=== PATIENT | female | born 1945 | race Caucasian/White ===

== ENCOUNTER → 2018-02-27 14:49 | Outpatient (CLI) | payer MEDICARE, BC, SELFPAY ==
--- NOTE | 2018-02-27 | DI.RAD.S_ITS ---
PROCEDURE: XR THORACIC SPINE 2V INDICATIONS: OSTEOPOROSIS TECHNIQUE: 3 views of the thoracic spine were acquired. COMPARISON: [facility], CR, XR LUMBAR SPINE 2-3V, 02/27/2018, 14:29. FINDINGS: Bones: No acute appearing fractures or dislocations. At what appears to be the L2 vertebral body upper endplate there is a mild compression fracture, chronicity uncertain. No suspicious bony lesions. 12 pairs of ribs are noted, and appear intact where visualized. Soft tissues: No paravertebral stripe thickening. IMPRESSION: Scoliosis, convex leftward at the upper third of the thoracic spine and convex rightward at the lower third. L2 mild superior endplate compression fracture, chronicity uncertain. MR scanning could be utilized to accurately establish chronicity of the compression fracture noted. Dictated by: Jose Mesa M.D. on 02/27/2018 at 15:44 Approved by: Jose Mesa M.D. on 02/27/2018 at 15:46
--- NOTE | 2018-02-27 | DI.RAD.S_ITS ---
PROCEDURE: XR LUMBAR SPINE 2-3V INDICATIONS: OSTEOPOROSIS TECHNIQUE: 3 views of the lumbar spine were acquired. COMPARISON: None. FINDINGS: Bones: 5 [id number] vertebrae are present. There is mildly levoscoliotic bony alignment centered at L1 to. No definite acute vertebral body compression fractures but there is a superior endplate impaction fracture at L2 of uncertain chronicity, mild in overall severity. At this level there is an estimated 22% vertebral height reduction of L2 when compared to the normal level immediately below.. No suspicious bony lesions. Soft tissues: Overlying bowel gas pattern is normal. No suspicious soft tissue calcifications. IMPRESSION: L2 22% superior endplate impaction fracture, of uncertain chronicity but MR scanning could accurately establish the presence of acute/subacute injury as the underlying cause if clinically desired. Dictated by: Jose Mesa M.D. on 02/27/2018 at 15:46 Approved by: Jose Mesa M.D. on 02/27/2018 at 15:48
== END ==
PROVIDERS: PCP Physician Assistant; Visit Provider Physician Assistant
DX: M80.08XA Age-related osteoporosis with current pathological fracture, vertebra(e), initial encounter for fracture (principal); M41.84 Other forms of scoliosis, thoracic region
CPT/HCPCS: 72070; 72100

== ENCOUNTER → 2018-03-13 08:11 | Outpatient (CLI) | payer MEDICARE, BC, SELFPAY ==
--- NOTE | 2018-03-13 | DI.MRI.S_ITS ---
PROCEDURE: MR LUMBAR SPINE WO CON INDICATIONS: LOW BACK PAIN TECHNIQUE: Noncontrast sagittal T1 spin echo and T2 fast echo, sagittal STIR, axial T1 and T2 fast spin echo through the lumbar spine. In cases with scoliosis, additional coronal T2 fast spin echo may be performed. COMPARISON: [facility], CR, XR LUMBAR SPINE 2-3V, 02/27/2018, 14:29. FINDINGS: Image quality: Diagnostic, with note made of motion artifact. Alignment and Curvature: Mild levoconvex scoliotic curvature is noted. Minimal retrolisthesis is seen in the a lower level. Bone Marrow: Marrow is of normal overall signal. There is a subacute appearing compression deformity seen involving the superior endplate of L2, with 30% loss of height centrally. No posterior displacement fracture fragments can be seen. There is a chronic compression deformity involving the anterior aspect of L1, with 10-20% loss of height anteriorly. Spinal Cord: Conus medullaris terminates at the L1 level. Visualized cord demonstrates normal signal and size. Paraspinous Soft Tissues: No paravertebral masses. T12-L1: Mild to moderate loss of disc height and disc signal are seen. No significant disc bulge. No neural foraminal or central canal narrowing. L1-L2: The disc height is well preserved. Loss of disc signal is seen. Mild disc bulge is seen, which is eccentric to the left. No neural foraminal or central canal narrowing. L2-L3: Moderate loss of disc height and disc signal are seen. Mild disc bulge is seen, which is eccentric to the left. There is no neural foraminal narrowing. Minimal to mild central canal narrowing is seen. L3-L4: Moderate loss of disc height is seen. Loss of disc signal is seen. Mild to moderate disc bulge is seen. Mild facet joint hypertrophy is seen. Mild bilateral neural foraminal narrowing is seen. Mild central canal narrowing is seen. L4-L5: At least moderate loss of disc height and disc signal are seen in moderate disc bulge is seen, which is eccentric right. There is mild to moderate left-sided and mild right-sided neural foraminal narrowing. Mild central canal narrowing is seen. L5-S1: Moderate loss of disc height is seen. Loss of disc signal is seen. Mild generalized disc bulge is seen. Mild facet joint hypertrophy is seen. No significant neural foraminal or central canal narrowing are seen. IMPRESSION: There is a subacute compression deformity seen involving the superior endplate of L2. Multiple levels of lumbar spine degenerative change are seen, which are overall most prominent at the L3-L4 and L4-L5 levels. Dictated by: Anuj River M.D. on 03/13/2018 at 9:08 Approved by: Anuj River M.D. on 03/13/2018 at 9:14
== END ==
PROVIDERS: PCP Physician Assistant; Visit Provider Physician Assistant
DX: M54.5 Low back pain (principal); M51.36 Other intervertebral disc degeneration, lumbar region
CPT/HCPCS: 72148

== ENCOUNTER → 2019-04-09 15:31 | Outpatient (CLI) | payer MEDICARE, BC, SELFPAY ==
[2019-04-09 16:12] LABS: Add Manual Diff / Slide Review NO; Basophils Absolute Auto 100 /uL (0-100); Eosinophils Absolute Auto 100 /uL (0-450); Hematocrit 38.8 % (36-46); Hemoglobin 12.6 g/dL (12.0-16.0); Lymphocytes Absolute Auto 1900 /uL (1100-4500); Lymphocytes Percent Auto 19.3 % (25-40); Mean Corpuscular HGB Conc 32.4 % (30-36); Mean Corpuscular Hemoglobin 24.7 PG (26-34); Mean Corpuscular Volume 76.3 fL (80-100); Monocytes Absolute Auto 800 /uL (0-900); Monocytes Percent Auto 8.2 % (3-14); Neutrophils Absolute Auto 7000 /uL (1500-7000); Neutrophils Percent Auto 70.5 % (50-75); Platelet Count 247 X10^3/uL (150-400); Red Blood Cell Count 5.09 X10^6/uL (4.0-5.2); Red Cell Distribution Width 16.8 % (11.6-14.8); White Blood Cell Count 9.9 X10^3/uL (4.5-11.0)
[2019-04-09 16:25] LABS: HEMOLYSIS < 15 (0-50); Iron 37 ug/dL (37-170)
[2019-04-09 16:36] LABS: Percent Iron Saturation 8 % (15-50); Total Iron Binding Capacity 453 ug/dL (265-497); Transferrin 351 mg/dL (206-381)
[2019-04-09 17:00] LABS: Ferritin 6.4 ng/mL (11.1-264)
[2019-04-09 17:30] LABS: Folate 6.2 ng/mL (2.76-20.0); Vitamin B12 907 pg/mL (239-931)
== END ==
PROVIDERS: PCP Physician Assistant; Visit Provider Internal Medicine Hematology & Oncology
DX: D50.9 Iron deficiency anemia, unspecified (principal)
CPT/HCPCS: 36415; 82607; 82728; 82746; 83540; 83550; 85025

== ENCOUNTER → 2019-04-15 13:27 | Outpatient (CLI) | payer MEDICARE, BC, SELFPAY | PROVIDERS: Family Provider Orthopaedic Surgery Orthopaedic Surgery of the Spine; PCP Internal Medicine; Visit Provider Internal Medicine | DX: M81.0 Age-related osteoporosis without current pathological fracture (principal); Z78.0 Asymptomatic menopausal state; M19.071 Primary osteoarthritis, right ankle and foot; M19.072 Primary osteoarthritis, left ankle and foot | CPT/HCPCS: 77080 ==

== ENCOUNTER → 2020-05-04 16:39 | Outpatient (CLI) | payer MEDICARE, BC, SELFPAY ==
[2020-05-04 18:28] LABS: Free T3, Triiodothyronine Free 2.49 pg/mL (2.77-5.27)
[2020-05-04 18:41] LABS: TSH w/ Reflex to FT4 5.25 uIU/mL (0.47-4.68)
== END ==
PROVIDERS: Family Provider Orthopaedic Surgery Orthopaedic Surgery of the Spine; PCP Internal Medicine; Referring Provider Internal Medicine; Visit Provider Internal Medicine
DX: E03.9 Hypothyroidism, unspecified (principal)
CPT/HCPCS: 84439; 84443; 84481

== ENCOUNTER → 2020-07-22 14:28 | Outpatient (CLI) | payer MEDICARE, BC, SELFPAY ==
[2020-07-22 15:40] LABS: Free T4, Direct Thyroxine 1.56 ng/dL (0.78-2.19)
[2020-07-22 15:54] LABS: Thyroid Stimulating Hormone 1.23 uIU/mL (0.47-4.68)
[2020-07-23 08:08] LABS: Triiodothyronine T3 Total 100 ng/dL (71-180)
== END ==
PROVIDERS: Family Provider Orthopaedic Surgery Orthopaedic Surgery of the Spine; PCP Internal Medicine; Referring Provider Internal Medicine; Visit Provider Internal Medicine
DX: E03.9 Hypothyroidism, unspecified (principal); E61.1 Iron deficiency
CPT/HCPCS: 36415; 84439; 84443; 84480

== ENCOUNTER → 2020-08-03 12:10 | Outpatient (CLI) | payer MEDICARE, BC, SELFPAY ==
[2020-08-03 13:09] LABS: Add Manual Diff / Slide Review NO; Basophils Absolute Auto 0 /uL (0-100); Basophils Percent Auto 0.6 % (0-2); Eosinophils Absolute Auto 100 /uL (0-450); Eosinophils Percent Auto 1.4 % (2-4); Hematocrit 42.7 % (36-46); Hemoglobin 13.5 g/dL (12.0-16.0); Lymphocytes Absolute Auto 1200 /uL (1100-4500); Lymphocytes Percent Auto 16.9 % (25-40); Mean Corpuscular HGB Conc 31.7 % (30-36); Mean Corpuscular Hemoglobin 27.4 PG (26-34); Mean Corpuscular Volume 86.5 fL (80-100); Monocytes Absolute Auto 500 /uL (0-900); Neutrophils Absolute Auto 5000 /uL (1500-7000); Neutrophils Percent Auto 73.1 % (50-75); Platelet Count 228 X10^3/uL (150-400); Red Blood Cell Count 4.94 X10^6/uL (4.0-5.2); White Blood Cell Count 6.9 X10^3/uL (4.5-11.0)
[2020-08-03 13:19] LABS: Alanine Aminotransferase 53 IU/L (<35); Albumin 4.1 g/dL (3.5-5.0); Albumin Globulin Ratio 1.6 (1.0-2.8); Alkaline Phosphatase 90 U/L (38-126); Aspartate Aminotransferase 35 IU/L (14-36); Bilirubin Total 0.8 mg/dL (0.2-1.3); Blood Urea Nitrogen 20 mg/dL (7-17); Calcium 8.7 mg/dL (8.4-10.2); Carbon Dioxide 32 mmol/L (22-32); Chloride 103 mmol/L (98-107); Estimated Glomerular Filt Rate > 60.0 mL/min (>60); Globulin 2.5 g/dL (1.7-4.1); Glucose 108 mg/dL (80-110); HEMOLYSIS < 15 (0-50); Potassium 3.8 mmol/L (3.4-5.1); Sodium 138 mmol/L (137-145); Total Protein 6.6 g/dL (6.3-8.2)
[2020-08-03 13:26] LABS: HEMOLYSIS < 15 (0-50); Iron 83 ug/dL (37-170)
[2020-08-03 13:39] LABS: Percent Iron Saturation 25 % (15-50); Total Iron Binding Capacity 329 ug/dL (265-497); Transferrin 222 mg/dL (206-381)
[2020-08-03 13:59] LABS: Ferritin 60 ng/mL (11-264)
== END ==
PROVIDERS: Family Provider Orthopaedic Surgery Orthopaedic Surgery of the Spine; PCP Internal Medicine; Referring Provider Internal Medicine; Visit Provider Internal Medicine
DX: D50.9 Iron deficiency anemia, unspecified (principal)
CPT/HCPCS: 36415; 80053; 82728; 83540; 83550; 85025

== ENCOUNTER → 2020-09-23 12:29 | Outpatient (CLI) | payer MEDICARE, BC, SELFPAY ==
--- NOTE | 2020-09-24 10:24 | DIET.PN ---
Addendum entered by Evelina Martin 09/24/20 10:45: Progress note written one day after pt appt, pt MNT appt was on 09/23/20 Original Note: Dietary Progress Note Assessment: 75y F attending nutrition appointment for severe complications and malabsorption after gastric bypass surgery. 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 Has osteoporosis from poor calcium absorption- two ankles, foot, and L2 fractures so far. Having difficulty recovering from L2 fracture which happened when she fell backwards while pulling a weed out of her garden. Pt has no absorption of fat soluble vitamins ADEK, does not tolerate fat in her diet either. Pt takes zinc supp and biotin but unsure what is actually absorbed. Pt is high risk for kidney stones (calcium oxalate) from poorly absorbed calcium, high oxalate foods, and low fluid intake but hasn't had one for 5y, has had 4 times previously, once requiring laser tx. Usual Day: wakes 7-7:30am 2c coffee c milk 8am takes thyroid meds 8:30am toast or bagel c spread (avocado, pb, light margarine) 2pm snack: doesn't like yogurt but eats a little every day, drinks yacoult drinks 1/2 [place] drink for Vit K likes cheetoes or other snackie things on napkin c in afternoon tries to eat dinner before 7pm Dinner: meat at every meal (doesn't like fish, doesn't like chicken) usually beef or pork (some chicken or shrimp), loves tacos, winter beans, broth based soups, grilled hamburgers on buns, hot dogs, pot roast has dessert every day (cake, pie, candy bars) HT: 5'8 WT: 195# UBW: 175# Labs: all from 07/30: K+ 3.8, FBG 108, Ca 8.7, Mg 2.4 H, Iron 83, Ferritin 60, Vit D 32.7, B12 988 H, Folate 4.3 Nutrition Diagnosis: 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 RD Impression: Pt has good insight into her health status, however is not following adequate diet to maintain weight loss s/p bariatric surgery. Pt is reliant on refined grain foods (bread, crackers, chips, dessert, sugar-sweetened beverages) and feels unable to do regular, structured physical activity for fear of further osteoporotic fractures. Interventions: 1. To address multiple nutrient malabsorption, pt is going to try [employer] transdermal nutrition supplements which are designed for s/p bariatric duodenal switch patients. This procedure is closely related to hers and they offer MVI, calcium c Vit D, iron. Pt will purchase 3mo supply and will request repeat nutrition labs to assess whether they are working. 2. To address 20# weight gain over the past year, pt will work on adding protein to every meal and snack. Pt will add 2 hb eggs to breakfast, will reconsider her yogurt choice to include lower sugar, will eat a small lunch, and will practice portion control at dinner. Monitoring/Evaluations: recc repeat nutrition labs in 3 mo and f/u as needed
== END ==
PROVIDERS: Family Provider Orthopaedic Surgery Orthopaedic Surgery of the Spine; PCP Internal Medicine; Referring Provider Internal Medicine; Visit Provider Internal Medicine
DX: K91.2 Postsurgical malabsorption, not elsewhere classified (principal); Z98.84 Bariatric surgery status
CPT/HCPCS: 97802

== ENCOUNTER → 2020-10-12 10:15 | Outpatient (CLI) | payer MEDICARE, BC, SELFPAY ==
[2020-10-12 11:35] LABS: COVID19 -Nasal RAPID Negative (Negative)
== END ==
PROVIDERS: Family Provider Orthopaedic Surgery Orthopaedic Surgery of the Spine; PCP Internal Medicine; Visit Provider Surgery
DX: Z20.822 Contact with and (suspected) exposure to COVID-19 (principal)
CPT/HCPCS: 87635; C9803

== ENCOUNTER 2020-10-13 11:52 | Day surgery (SDC) | payer MEDICARE, BC, SELFPAY ==
[2020-10-13] VITALS (7 sets, daily range): BP systolic 101–125; BP diastolic 62–74; PULSE 64–70; RESP 12–18; TEMP 36.4–37.1; O2SAT 93–97; BMI 30.5
--- NOTE | 2020-10-13 | PATH_ITS ---
[facility] Accession Number: [id number] . 01 Material submitted: . PART A: gastrointestinal site - BIOPSY GASTRIC ANASTOMOSIS PART B: gastrointestinal site - STOMACH PART C: esophagus - ESOPHAGUS PART D: rectum - 20CM RECTAL POLYPS X3 . 01 Clinical history: . SDC . 02 Diagnosis: A. Biopsy Gastric Anastomosis: Portions of gastric antral mucosa with mild chronic inflammation and features of reacive gastropathy. Negative for Helicobacter organisms by immunohistochemistry. Negative for intestinal metaplasia. Negative for dysplasia and malignancy. . B. Stomach, Biopsy: Portions of gastric body-type mucosa with mild chronic inflammation. Negative for Helicobacter organisms by immunohistochemistry. Negative for intestinal metaplasia. Negative for dysplasia and malignancy. . C. Esophagus, Biopsy: Portions of proximal gastric mucosa with mild chronic inflammation. Negative for intestinal metaplasia by alcian blue stain. Negative for dysplasia or malignancy. No squamous mucosa identified for evaluation. . D. 20 cm Rectal Polyps x3: Portions of hyperplastic polyp x3. [facility] 10/19/2020 1504 Local . 02 Electronically signed: . Mariel Diaz MD, Pathologist NPI- [id number] . 01 Gross description: . Part A: BIOPSY GASTRIC ANASTOMOSIS: Received in formalin is 1 fragment(s) of ramsay, soft tissue measuring 0.5 x 0.3 x 0.2 cm submitted entirely in 1 cassette(s) Part B: STOMACH: Received in formalin are 2 fragment(s) of ramsay, soft tissue measuring 0.5 x 0.3 x 0.1 cm to 0.3 x 0.3 x 0.2 cm submitted entirely in 1 cassette(s) Part C: ESOPHAGUS: Received in formalin are 2 fragment(s) of ramsay, soft tissue measuring 0.7 x 0.3 x 0.1 cm to 0.5 x 0.3 x 0.1 cm submitted entirely in 1 cassette(s) Part D: 20CM RECTAL POLYPS X3: Received in formalin are 3 fragment(s) of ramsay, soft tissue measuring 0.4 x 0.4 x 0.3 cm to 0.3 x 0.3 x 0.2 cm submitted entirely in 1 cassette(s) /QBJ 10/14/2020 0644 Local . 02 Microscopic: . A-B. An immunohistochemical stain was performed to evaluate for Helicobacter organisms and is negative. The control stain showed appropriate reactivity. . * This test was developed and its performance characteristics determined by [employer]. It has not been cleared or approved by the U.S. Food and Drug Administration. The FDA has determined that such clearance or approval is not necessary. This test is used for clinical purposes. It should not be regarded as investigational or for research. . 02 Pathologist provided ICD-10: D64.9, K63.5, K29.70 . 02 CPT . 469367, 324572, 233146, 587983, [id number], [id number] Performed at: 01 [facility] [address] [place] [address], [place], [place] [id number] MD Hang Carpenter MD Phone: [phone] Performed at: 02 [facility] [address] [place], [place] [id number] MD Caro Crespo MD Phone: [phone]
[2020-10-13] MEDS: SODIUM CHLORIDE 0.9% 1,000 ML 200 ML IV (12:27)
--- NOTE | 2020-10-13 13:02 | PM.HP.1 ---
History of Present Illness History of Present Illness Date Patient Seen: 10/13/20 Time Patient Seen: 13:03 Chief complaint: SDC Narrative: This is a 74-year-old woman with history of biliary pancreatic bypass surgery (duodenal switch) in 1991. She has had anemia and osteoporosis since then, secondary to malabsorption of iron and calcium from the operation. She has had breast reduction, UGO/BSO, 2 C sections, and abdominoplasty. She has hypothyroidism, history of kidney stones, history of fatty liver, hypertension, obesity (BMI 34) and ANTHONY. She is being followed by Dr. Cole for her anemia, and is receiving iron infusions. Through her discussions with him, it was discovered that she has never had a screening colonoscopy, has never had an upper endoscopy. She is referred for both, for colon cancer screening, and to rule out other causes of anemia. She denies any symptoms of epigastric pain, melena, nausea, reflux, or heartburn. She has never had evaluation or surveillance for marginal ulcer. ROS: She reports easy bruising any time she takes an NSAID. She was having some nausea and vertigo symptoms today. She has received some IV fluids and is feeling better. Thirteen system review is otherwise negative other than as mentioned below and in HPI. PE: GENERAL: Well groomed and cooperative. Appears stated age. Answers questions promptly and appropriately. Vital signs noted. HENT: Normocephalic, atraumatic. Hearing intact. EYES: Conjunctiva pink, sclera white, no periorbital swelling. CARDIOVASCULAR: Regular rate. No pedal edema. RESPIRATORY: Non-tachypneic, breathing comfortably on room air. GASTROINTESTINAL: Abdomen soft and non-distended; obese, well-healed incisional scars, no palpable hernias or masses GENITALURINARY: No flank tenderness. MUSCULOSKELETAL: Equal tone and mass bilaterally. SKIN: Warm, dry, soft, appropriate color for ethnicity. No other lesions, rashes, or wounds. NEURO: Alert and Oriented X 3. No gross sensory deficits, or cognitive issues. PSYCH: Appropriate affect and mood. Patient History Medical History Anemia Chronic anxiety Hypertension Hypothyroid obesity Hypothyroidism Meniere disease Obstructive sleep apnea Osteoporosis Surgical History History of hysterectomy History of reduction mammoplasty History of tonsillectomy Hx of section Family & Social History Family History Father CML (chronic myelocytic leukemia) Heart disease Mother Renal pelvis transitional cell malignant neoplasm Stroke Sister Ovarian cancer Social History: household members spouse Tobacco & Substance use: Smoking Status Never smoker alcohol intake never Substance Use Type does not use Meds Home Medications and Allergies Home Medications Medication Instructions Recorded Confirmed Type fluoxetine 20 mg PO BID #0 11/21/16 10/13/20 History hydrochlorothiazide 12.5 mg PO Q DAY #0 11/21/16 10/13/20 History levothyroxine [Synthroid] 1 tab PO DAILY #0 11/21/16 10/13/20 History raloxifene [Evista] 60 mg PO QDAY #0 11/21/16 10/13/20 History sodium,potassium,mag sulfates 17.5 177 ml PO DAILY #354 ml 08/25/20 Rx gram-3.13 gram-1.6 gram oral soln Allergies Allergy/AdvReac Type Severity Reaction Status Date / Time erythromycin base Allergy Intermediate HIVES Verified 10/13/20 12:08 [ERYTHROMYCIN BASE] codeine [CODEINE] AdvReac Intermediate NAUSEA Verified 10/13/20 12:08 Exam Vital Signs (past 8 hours): - 10/13/20 12:10 Temperature 98.0 F Pulse Rate 70 Respiratory Rate 12 Blood Pressure 125/74 Pulse Oximetry 95 Oxygen Delivery Method Room Air Assessment & Plan Assessment and plan (1) Obesity (BMI 30.0-34.9): Status: Acute (2) Obstructive sleep apnea: Status: Acute (3) History of bariatric surgery: Status: Acute (4) Iron deficiency anemia: Qualifiers: Iron deficiency anemia type: other iron deficiency Qualified Code(s): D50.8 - Other iron deficiency anemias Status: Acute Assessment & Plan narrative: 38 minutes were spent with the patient, reviewing her records, and discussing the plan for her endoscopy. Risks and benefits of diagnostic EGD, and colonoscopy and possible biopsy or polypectomy were discussed with the patient including risk of bleeding, perforation, need for additional procedures, risks of anesthesia. The patient desires to proceed with the EGD and colonoscopy procedure. We discussed the need for upper and lower endoscopy to rule out other causes of anemia, and to surveil her stomach pouch and anastomosis for ulcers, gastritis, esophagitis. We discussed need for colonoscopy due to standard risk of colon cancer and need for screening colonoscopy. Plan: Zofran 4mg IV now Proceed to EGD and colonoscopy with conscious sedation COVID-19 COVID-19 status: Negative Result date/Date tested (Pos, Neg/Pending): 10/12/20 Time Spent With Patient Time with patient: 15-24 minutes
[2020-10-13] MEDS: ONDANSETRON 4 MG/2 ML INJ IV (13:03)
--- NOTE | 2020-10-13 13:11 | PM.OP.ENDO ---
Operative Date/Time/Diagnoses Date of procedure: 10/13/20 Time of procedure: 13:11 Pre-op diagnosis: Anemia, history of bariatric surgery, never had a surveillance EGD. Age 75 never had a colonoscopy. Post-op diagnosis: other (4 cm Hill grade 4 hiatal hernia, Monk's esophagus, inflammation/discussed gastritis at the gastrojejunal anastomosis, widely patent anastomosis) Procedure & Clinicians Study performed: Colonoscopy Esophagogastroduodenoscopy Procedural sedation performed by the endoscopist Biopsies of gastro jejunal anastomosis, biopsies of stomach, biopsies of distal esophagus with standard forceps Polypectomy x2 from the colon with Jumbo forceps Same procedure as scheduled: Yes Indications: Anemic, history of bariatric surgery Never had an EGD or colonoscopy Surgeon: Becky Cummings Procedure Notes SCOAP/Timeout: Performed Procedure in detail: The patient was brought to the room and placed in left lateral decubitus position with all bony prominences padded. A bite block was positioned in the patient's mouth to protect the lips, teeth, and tongue for the procedure. A time-out was performed and then the patient was given procedural sedation starting with 3 mg of Versed and 100 mcg of fentanyl. Vitals were monitored throughout the procedure and remained stable. Once adequately sedated, the procedure was begun. The lubricated gastroscope was passed through the bite block and across the tongue and into the esophagus without incident. A tubular view of the esophagus was maintained as the scope was advanced through the esophagus and into the stomach. The gastrojejunal anastomosis was observed, to be widely patent. There was some visible inflammatory change on the stomach side of the gastrojejunal anastomosis. This was biopsied. The scope was advanced into the jejunum, and the jejunal mucosa appeared normal, and there were no strictures or narrowing of the jejunum as far as I could pass the scope, about 30 cm down. The scope was then withdrawn back into the stomach. Biopsies were taken to rule out H pylori. The scope was retroflexed and the gastric cardia was examined. There was a diverticulum on the fundus of the stomach, which appeared benign without any ulcerations. The hiatus was wide, consistent with a Hill grade 4 hiatal hernia. The scope was then straightened, and withdrawn into the esophagus. The Z-line was abnormal with 3-4 cm tongues of salmon-colored mucosa coming up into the esophagus, consistent with Monk's esophagus. Biopsies were taken. The scope was then withdrawn through the esophagus with a tubular view. The scope was then withdrawn from the patient and attention was turned to the colonoscopy portion of the procedure. In additional 2 mg of Versed were given. A rectal exam was performed revealing no abnormalities. The colonoscope was then introduced to the rectum and advanced to the cecum in the usual fashion. The cecum was identified by the appendiceal orifice, the mucosal tri-fold, and the ileocecal valve. The scope was then retracted while rotating side to side and examining each mucosal fold. Moderate diverticulosis was seen in the left side of the colon. Three polyps were removed at 20 cm from the anal verge in the rectum. They were small and benign-appearing. At the conclusion of the procedure retroflexion was performed and small grade 1-2 internal hemorrhoids without stigmata of bleeding were seen. The scope was then withdrawn from the rectum the procedure was concluded. The patient tolerated the procedure well and was transferred to the PACU in stable condition. A total of 7 mg of Versed and 150 micro g of fentanyl were given for the entire procedure. Scope withdrawal time: 9 Sedation minutes: 35 Findings: Monk's esophagus, diverticulosis, gastritis, hiatal hernia and polyp (Three colon polyps) Specimen(s): other (Biopsies of gastrojejunal anastomosis, stomach, distal esophagus. Polypectomy x2.) Post-procedure Recommendations: Colonscopy in 5 years (Depending on pathology results) and Other recommendation (Start PPI or H2 yesica, EGD follow-up surveillance recommendations depending on biopsy results) Follow up: as needed Disposition: PACU
[2020-10-13] MEDS: LIDOCAINE 4% SOLN 50 ML 20 ML TOP (13:12)
[2020-10-13] MEDS: MIDAZOLAM 5 MG/5 ML VIAL IV (13:34)
[2020-10-13] MEDS: fentaNYL 250 MCG/5 ML INJ IV (13:34)
--- NOTE | 2020-10-13 14:43 | SUR.PHASEII ---
Pt ready to go, swallow remains intact, belly soft. called, pt dressed, left unit when ready left in stable condition.
--- NOTE | 2020-10-13 15:33 | SUR.PHASEII ---
Late entry: Pt getting dressed, had some nausea, vomited 50mls yellow clear liquid, cool wash cloth to forehead, yohane ease brought to bedside, pt felt better after 10 minutes and wanted to go, left in stable condition.
== END 2020-10-13 14:51 | disposition home or self-care (01) ==
PROVIDERS: Family Provider Orthopaedic Surgery Orthopaedic Surgery of the Spine; PCP Internal Medicine; Referring Provider Surgery; Visit Provider Surgery
PROC: 0DJ08ZZ Inspection of Upper Intestinal Tract, Via Natural or Artificial Opening Endoscopic (ICD-10-PCS; CPT 43235; principal; 2020-10-13 13:00)
PROC: 0DJD8ZZ Inspection of Lower Intestinal Tract, Via Natural or Artificial Opening Endoscopic (ICD-10-PCS; CPT 45378; 2020-10-13 13:00)
DX: K29.50 Unspecified chronic gastritis without bleeding (principal); D50.8 Other iron deficiency anemias; G47.33 Obstructive sleep apnea (adult) (pediatric); Z98.84 Bariatric surgery status; E03.9 Hypothyroidism, unspecified; E66.9 Obesity, unspecified; Z68.34 Body mass index [BMI] 34.0-34.9, adult; M81.0 Age-related osteoporosis without current pathological fracture; K22.70 Barrett's esophagus without dysplasia; K44.9 Diaphragmatic hernia without obstruction or gangrene; K64.0 First degree hemorrhoids; K62.1 Rectal polyp
CPT/HCPCS: 45380; 43239; 99152; 99153; J2250; J2405; J3010

== ENCOUNTER 2021-01-02 20:41 | Emergency (ER) | payer MEDICARE, BC, SELFPAY ==
[2021-01-02 21:01] VITALS: BP 154/82; PULSE 80; RESP 18; TEMP 37.3; O2SAT 96; BMI 32.3
== END 2021-01-02 22:13 | disposition left against medical advice (07) ==
PROVIDERS: Emergency Provider Emergency Medicine; Family Provider Orthopaedic Surgery Orthopaedic Surgery of the Spine; PCP Internal Medicine
CPT/HCPCS: 99281

== ENCOUNTER → 2021-04-22 12:08 | Outpatient (CLI) | payer MEDICARE, BC, SELFPAY ==
--- NOTE | 2021-04-22 12:09 | DI.RAD.S_ITS ---
PROCEDURE: XR DEXA AXIAL SKELETON INDICATIONS: OSTEOPOROSIS SCREENING COMPARISON: [facility], CR, XR DEXA AXIAL SKELETON, 04/15/2019, 14:18. FINDINGS: This blank DEXA report has been sent in error by the PACS system. The correct and complete report will be forthcoming in 1-2 days. Thank you for your patience and understanding. Dictated by: Gustavo Sellers M.D. on 04/22/2021 at 14:13 Approved by: Gustavo Sellers M.D. on 04/22/2021 at 14:13
== END ==
PROVIDERS: Family Provider Orthopaedic Surgery Orthopaedic Surgery of the Spine; PCP Internal Medicine; Referring Provider Internal Medicine; Visit Provider Internal Medicine
DX: M81.0 Age-related osteoporosis without current pathological fracture (principal); M85.852 Other specified disorders of bone density and structure, left thigh; M85.851 Other specified disorders of bone density and structure, right thigh
CPT/HCPCS: 77080

== ENCOUNTER 2021-06-26 16:02 | Emergency (ER) | payer MEDICARE, BC, SELFPAY ==
--- NOTE | 2021-06-26 16:10 | ED_ITS ---
HPI - Back Pain/Injury General Chief Complaint: Back Pain/Injury Stated Complaint: BACK PAIN POST FALL Time Seen by Provider: 06/26/21 16:10 History of Present Illness HPI Narrative: 75-year-old female nonsmoker with history of hypothyroid and hypertension as well as a prior lumbar compression fracture presents with her in the chief complaint of low midline back pain since a fall this morning. She states that she was at her son's house and tripped on a dog gate and fell on to her bottom. She states she immediately felt a midline lumbar pain that reminded her of prior compression fracture. She has pain with motion and improvement with rest. She denies any numbness, tingling or weakness. She denies any loss of control of bowel or bladder. She has had no fever chills and does not take blood thinners. Related Data Home Medications Medication Instructions Recorded Confirmed fluoxetine 40 mg capsule 20 mg PO BID #0 11/21/16 03/23/21 hydrochlorothiazide 12.5 mg capsule 12.5 mg PO Q DAY #0 11/21/16 03/23/21 levothyroxine 150 mcg tablet 1 tab PO DAILY #0 11/21/16 03/23/21 (Synthroid) raloxifene 60 mg tablet (Evista) 60 mg PO QDAY #0 11/21/16 03/23/21 cholecalciferol (vitamin D3) 125 50,000 mcg PO 3XW 12/15/20 03/23/21 mcg (5,000 unit) tablet (Vitamin D3) multivitamin cap 12/15/20 Previous Rx's Medication Instructions Recorded lidocaine 5 % topical patch 1 patch TOP DAILY #15 each 06/26/21 (Lidoderm) Allergies Allergy/AdvReac Type Severity Reaction Status Date / Time erythromycin base Allergy Intermediate HIVES Verified 06/26/21 16:54 [ERYTHROMYCIN BASE] codeine [CODEINE] AdvReac Intermediate NAUSEA Verified 06/26/21 16:54 Review of Systems Review of Systems Narrative: GENERAL: Denies chills, fatigue, malaise, fever, sweats. HEENT: Denies sinus pain, ear pain, sore throat, difficulty swallowing, dizziness. RESPIRATORY: Denies dyspnea, cough, wheezing, hemoptysis, sputum. CARDIOVASCULAR: Denies chest pain, palpitations, orthopnea, edema, GASTROINTESTINAL: Denies nausea, vomiting, abdominal pain, diarrhea, constipation, melena. : Denies dysuria, frequency, incontinence, hematuria, urinary retention. MUSCULOSKELETAL: See HPI SKIN: Denies rash, skin lesions, or other NEUROLOGIC: Denies weakness, headache, numbness, change in speech, confusion, seizures, incoordination. PSYCHIATRIC: No concerning psychosocial issues. 12 point review of systems is negative except for those stated above Patient History Medical History Anemia Chronic anxiety Hypertension Hypothyroid obesity Hypothyroidism Meniere disease Obstructive sleep apnea Osteoporosis Surgical History History of hysterectomy History of reduction mammoplasty History of tonsillectomy Hx of section Family History Father CML (chronic myelocytic leukemia) Heart disease Mother Renal pelvis transitional cell malignant neoplasm Stroke Sister Ovarian cancer Social History marital status: household members: spouse Smoking Status: Never smoker alcohol intake: never substance use type: does not use Smoking Status: Never smoker Substance Use Type: does not use Exam Narrative Exam Narrative: GEN: AOx3 and in mild distress EYES: Pupils are equal, round, and reactive to light and accommodation. Extraoccular muscles are intact bilaterally. There is no subconjunctival hemorrhage or exudate. CHEST: Lungs are clear to auscultation bilaterally and free of wheezes, rales, or rhonchi. Heart rate is regular rhythm, there are no murmurs, clicks, rubs, or gallops. There is no chest wall tenderness. ABD: Abdomen is soft and nontender. There is no guarding or rebound. Bowel sounds are normal in all 4 quadrants. There is no mass or organomegaly. EXT: Full painless ROM of all extremities with no loss of sensation or strength. BACK: Mid lumbar tenderness to palpation in the midline. No step-offs or crepitance. No saddle anesthesia or measurable lower extremity weakness. Patellar reflexes 1+ bilaterally. No sensory deficit. SKIN: Warm, pink, and dry. No erythema or rash Initial Vital Signs Initial Vital Signs: Vital Signs Temperature 97.5 F L 06/26/21 16:13 Pulse Rate 74 06/26/21 16:13 Respiratory Rate 16 06/26/21 16:13 Blood Pressure 144/75 H 06/26/21 16:13 Pulse Oximetry 96 06/26/21 16:13 Course Orders Ordered: ED Orders 06/26/21 16:19 XR lumbar spine 2-3V Stat 06/26/21 16:20 Ictotest Urine Stat Urine Microscopic Stat Discontinued Medications Acetaminophen (Acetaminophen 325 Mg Tablet) 975 mg PO NOW ONE Stop: 06/26/21 16:20 Last Admin: 06/26/21 16:39 Dose: 975 mg Documented by: OK Lidocaine (Lidocaine Patch 1 Each Adh..Patch) 1 each TOP NOW ONE Stop: 06/26/21 16:20 Last Admin: 06/26/21 16:39 Dose: 1 each Documented by: OK Vital Signs Vital signs: Vital Signs - 8 hr 06/26/21 16:13 06/26/21 17:33 Temperature 97.5 F L Pulse Rate 74 62 Respiratory Rate 16 18 Blood Pressure 144/75 H 144/75 H Pulse Oximetry 96 99 MDM - Back Pain/Injury Lab Data Labs: Lab Results 06/26/21 Range/Units 16:20 Ur Bilirubin Confirm Negative (Negative) Urine RBC 0-1/hpf (0-5/HPF) Urine WBC 0-1/hpf (0-5/HPF) Ur Squamous Epith Cells 1-5 /hpf (0-5/HPF) Urine Bacteria Occasional (0-1) (None) Urine Mucus 1+ H (Negative) Ur Culture Indicated? Cult not indicated Urine Dip Bedside Urine Glucose Negative Bedside Urine Bilirubin ++ 2 Bedside Urine Ketone +++ 80 Urine Specific [place] 1.025 Bedside Urine Occult Blood - Negative Bedside Urine pH 6.5 Bedside Urine Protein + 30 Bedside Urine Urobilinogen +/- 1mg Bedside Urine Nitrite - Negative Bedside Urine Leukocytes - Negative Esterase Imaging Data Lumbar Xray: Radiologist's Impression: Launch?[address] [address] XRay Report Signed Patient: Ann Mai MR#: [id number] : 1945 Acct:[id number] Age/Sex: 75 / F Date of Service: 06/26/21 Loc: ED Accession Number: [id number] ?? Procedure: XR lumbar spine 2-3V Ordering Provider: Sandip Taylor D.O. PROCEDURE:? XR LUMBAR SPINE 2-3V ? INDICATIONS:? fall with midline lumbar pain, history of compression fx ? TECHNIQUE:? 3 views of the lumbar spine were acquired.? ? COMPARISON:? [facility], [place], XR LUMBAR SPINE 2 OR 3 VIEWS, 04/23/2019, 11:45. ? FINDINGS:? ? Bones:? There is anterior wedging of L1 and L2.? L1 compression fracture is new compared to 04/23/2019.? L2 compression fracture is unchanged.? Degenerative disc disease is seen with disc space narrowing at multiple levels.? Minimal retrolisthesis of L3 over L4.? 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 Mild leftward curvature of the lumbar spine with the leftward apex at L2. ? Soft tissues:? Overlying bowel gas pattern is normal.? No suspicious soft tissue calcifications.? ? ? IMPRESSION:? 1. L1 compression fracture, new compared to 04/23/2019, possibly acute. 2. L2 compression fracture unchanged compared to 04/23/2019. 3. 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 ? ? Dictated by: Randy Castellano M.D. on 06/26/2021 at 16:13 ? ? Approved by: Randy Castellano M.D. on 06/26/2021 at 16:16 ? [facility] Narrative Medical decision making narrative: Patient with a low risk fall and a newly discovered L1 compression fracture, presumably related to this fall noted on x-ray. She has no neuro surgical red flags. Pain is well controlled. She does not tolerate nor does she want opioids. She has an existing relationship with Dr. La from a prior lumbar fracture. Return precautions given and questions answered to her apparent satisfaction Discharge Plan Departure Patient Disposition: Home Clinical Impression: Compression fx, lumbar spine Instructions: DI for Vertebral Fracture Activity Restrictions/Additional Instructions: *You have been diagnosed with [L1 compression fracture] *What to do: *Please continue to take your regular medications as directed. [ ] New medication prescriptions sent to your pharmacy: [ ] [ x] New medication written as a paper prescription [ ] No new medications given *Please follow up with your primary care provider in 2-3 days, call for an appointment. Let them know you were seen in the Emergency Department and that we ask that you be seen in follow up. We will electronically transmit a record of today's note if your PCP is in our system *If you do not have a primary care provider please contact the [facility] Resource line at [phone]. They will ask some questions about your medical history and help get you set up with a doctor in the community. *Return to Emergency Department if you should have any new, worsening or concerning symptoms, such as [loss of control of bowel or bladder, lower extremity numbness, tingling, weakness, worsening pain or other bothersome symptoms Prescriptions: New lidocaine [Lidoderm] 5 % adhesive patch,medicated 1 patch TOP DAILY Qty: 15 0RF Rx Instructions: leave on most painful area for 12 hrs No Action raloxifene [Evista] 60 MG tablet 60 mg PO QDAY Qty: 0 0RF fluoxetine 40 MG capsule 20 mg PO BID Qty: 0 0RF hydrochlorothiazide 12.5 MG capsule 12.5 mg PO Q DAY Qty: 0 0RF levothyroxine [Synthroid] 150 MCG tablet 1 tab PO DAILY Qty: 0 0RF multivitamin Capsule 0RF Rx Instructions: multivitamin in transdermal patch cholecalciferol (vitamin D3) [Vitamin D3] 125 mcg (5,000 unit) Tablet 50,000 mcg PO 3XW 0RF Referrals: Marybeth Gutierrez MD [Family Provider] - Robin Vega MD [Primary Care Provider] -
--- NOTE | 2021-06-26 16:12 | PC.NURSE ---
Pt in car, having difficulty getting out r/t pain. Able to move all four extremities, limited by pain. CSM intact. Assisted from car to w/c.
[2021-06-26 16:13] VITALS: BP 144/75; PULSE 74; RESP 16; TEMP 36.4; O2SAT 96; BMI 29.8
--- NOTE | 2021-06-26 16:19 | DI.RAD.S_ITS ---
PROCEDURE: XR LUMBAR SPINE 2-3V INDICATIONS: fall with midline lumbar pain, history of compression fx TECHNIQUE: 3 views of the lumbar spine were acquired. COMPARISON: [facility], [place], XR LUMBAR SPINE 2 OR 3 VIEWS, 04/23/2019, 11:45. FINDINGS: Bones: There is anterior wedging of L1 and L2. L1 compression fracture is new compared to 04/23/2019. L2 compression fracture is unchanged. Degenerative disc disease is seen with disc space narrowing at multiple levels. Minimal retrolisthesis of L3 over L4. 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 Mild leftward curvature of the lumbar spine with the leftward apex at L2. Soft tissues: Overlying bowel gas pattern is normal. No suspicious soft tissue calcifications. IMPRESSION: 1. L1 compression fracture, new compared to 04/23/2019, possibly acute. 2. L2 compression fracture unchanged compared to 04/23/2019. 3. 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 Dictated by: Randy Castellano M.D. on 06/26/2021 at 16:13 Approved by: Randy Castellano M.D. on 06/26/2021 at 16:16
[2021-06-26] MEDS: LIDOCAINE PATCH 1 EACH ADH..PATCH TOP (16:39)
[2021-06-26] MEDS: ACETAMINOPHEN 325 MG TABLET 975 MG PO (16:39)
[2021-06-26 17:09] LABS: Bacteria Urine Occasional (0-1); Mucus Urine 1+ (Negative); RBC Urine 0-1/HPF (0-5/HPF); Squamous Epithelial Cell Urine 1-5 /HPF (0-5/HPF); WBC Urine 0-1/HPF (0-5/HPF)
[2021-06-26 17:10] LABS: Culture Indicated Urine Cult Not Indicated; Ictotest Urine Negative (Negative)
[2021-06-26 17:33] VITALS: BP 144/75; PULSE 62; RESP 18; O2SAT 99
--- NOTE | 2021-06-26 17:57 | PC.NURSE ---
Walker and walker training by Yelena Villaseñor RN with DC instructions
== END 2021-06-26 17:50 | disposition home or self-care (01) ==
PROVIDERS: Emergency Provider Emergency Medicine; Family Provider Orthopaedic Surgery Orthopaedic Surgery of the Spine; PCP Internal Medicine
DX: S32.010A Wedge compression fracture of first lumbar vertebra, initial encounter for closed fracture (principal); S32.020D Wedge compression fracture of second lumbar vertebra, subsequent encounter for fracture with routine healing; W18.09XA Striking against other object with subsequent fall, initial encounter; Y92.009 Unspecified place in unspecified non-institutional (private) residence as the place of occurrence of the external cause; X58.XXXD Exposure to other specified factors, subsequent encounter
CPT/HCPCS: 72100; 81003; 81015; 99283; 99284

== ENCOUNTER 2021-09-03 10:33 | Outpatient (RCR) | payer MEDICARE, BC, SELFPAY ==
--- NOTE | 2021-09-03 12:00 | PT.OPPOC ---
Physical, Occupational & Speech Therapy At [facility] Current Diagnoses Pain in other specified joint (09/03/21) Stiffness of other specified joint, not elsewhere classified (09/03/21) Age-related osteoporosis with current pathological fracture, unspecified site, initial encounter for fracture (09/03/21) Visit Care Team Role Provider Type Marybeth Gutierrez MD Family Provider Physician Specialty: Orthopedic Surgery Address: [address] [place] [address], [id number] Email: [email or web address] Jose Goldberg MD Attending Provider Non-Staff Primary Care Provider Referring Provider Specialty: Internal Medicine Address: [address] [place] [address], [id number] Email: Plan Of Care PT-OP-T Assessment and Plan Start: 09/03/21 16:53 Freq: Status: Active Protocol: Document 09/03/21 11:15 DCW (Rec: 09/06/21 13:33 DCW [id number]) Physical Therapy Assessment Rehab Potential Rehabilitation Potential Good Evaluation Complexity Number of Personal Factors/Comorbidities 1-2 Number of Body Systems Impaired 3 Clinical Presentation at Evaluation Stable Impairments Impairments Activity Tolerance,Functional Activities,Functional Mobility ,Pain,Posture,ROM,Soft Tissue Mobility,Strength,Tone Goals Two Impairment Pt experiences increased back pain standing longer than 10 minutes Entry Level Installation Technician Goal (LTG) Pt to demonstrate ability to stand for 20 minutes without low back pain in order to return to doing dishes without needing a rest break. LTG Duration 11/01/21 One Impairment Pt does not have an appropriate home exercise program Short Term Goal (STG) Pt to be independent and compliant with an appropriate HEP STG Duration 10/01/21 Assessment Summary Assessment Pt presents with pain and stiffness more than 2 months s /p L1 compression fracture. Pt limited ROM and core strength , but does show very good LE strength. Had been trying to exercise with a walking program and aquatic therapy, but has not returned since her fracture. Is very interested in trying aquatic therapy. Pt also entered clinic today carrying her back brace, reporting it was iuncomfortable and she didn't think it was useful. Pt felt better about brace after slight adjustments to the fit. Pt should benefit from skilled therapy focusing on improving core strength, posture, spinal ROM, as well as aquatic therapy. Physical Therapy Plan Frequency and Duration Frequency of Treatment 2x/Week Plan of Care Start Date 09/03/21 Plan of Care End Date 11/01/21 Therapeutic Interventions Therapeutic Interventions Aquatic Therapy,Gait Training, Home Exercise Program,Manual Therapy,Patient/Caregiver Education,Self-Care/Home Management,Soft Tissue Mobilization,Therapeutic Activities,Therapeutic Exercises Next Visit Focus/Plan Next Note Type Treatment Note Next Visit Plan Core strengthening, mobility, ROM, posture training Plan of Care Dates Plan of Care Start Date 09/03/21 Plan of Care End Date 11/01/21 Electronically Signed by: Joshua Shields, PT 09/06/21 2920 Please Sign and Return: I have reviewed this Plan of Care and certify that the skilled therapy services above are required to meet the patient?s needs. Physician Signature Date Printed Name and Credentials Clinical Instructor Signature Printed Name and Credentials
--- NOTE | 2021-09-03 12:00 | PT.OIE ---
Current Diagnoses Pain in other specified joint (09/03/21) Stiffness of other specified joint, not elsewhere classified (09/03/21) Age-related osteoporosis with current pathological fracture, unspecified site, initial encounter for fracture (09/03/21) Past Medical History (Last Reviewed 06/26/21 @ 16:56 by Sandip Taylor DO) Anemia Chronic anxiety History of hysterectomy History of reduction mammoplasty History of tonsillectomy Hx of section Hypertension Hypothyroid obesity Hypothyroidism Meniere disease Obstructive sleep apnea Osteoporosis Past Surgical History (Last Reviewed 06/26/21 @ 16:56 by Sandip Taylor DO) History of hysterectomy History of reduction mammoplasty History of tonsillectomy Hx of section Visit Care Team Role Provider Type Marybeth Gutierrez MD Family Provider Physician Specialty: Orthopedic Surgery Address: [address] [place] [address], [phone] Email: Jose Goldberg MD Attending Provider Non-Staff Primary Care Provider Referring Provider Specialty: Internal Medicine Address: [address] [place] [address], [id number] Email: Physical Therapy Initial Evaluation PT-OP-A Visit Information Start: 09/03/21 16:53 Freq: Status: Active Protocol: Document 09/03/21 11:15 DCW (Rec: 09/03/21 16:54 DCW [id number]) Out-Patient Physical Therapy Visit Information Visit Information Visit Type Initial Evaluation Visit Start Time 11:15 Visit Stop Time 12:00 Total Visit Minutes 45 Visit Number 1 Number of DIRECTOR OF GIFT PLANNING Visits 0 Evaluation Information Evaluation Date 09/03/21 PT-OP-B Current Condition Start: 09/03/21 16:53 Freq: Status: Active Protocol: Document 09/03/21 11:15 DCW (Rec: 09/06/21 09:43 DCW [id number]) Current Condition History of Current Condition Onset Date ~Two month history Current Complaints Low back pain and activity limitations s/p lumbar compression fracture History of Current Condition Pt is a 75 year old female presenting with low back pain two months s/p L1 compression fracture. Notes that she was visiting her kids, and tripped over a dog, fell right back on my butt. Notes that she has a good bed, good recliner, can get herself into comfortable positions, however within 10 minutes of getting up, she is in significant pain . Driving longer than 15 minutes also maker her very uncomfortable. Has difficulty with pain meds, as they cause nausea. Notes approximately two years ago, she suffered an L2 compression fracture. Also has a history of bariatric surgery, multiple aversion fractures in her ankles. Additionally, pt brings in her back brace today, reports it is very uncomfortable and she thinks it needs to be adjusted . Prior Treatments and Tests Lumbar x-ray: IMPRESSION: 1. L1 compression fracture, new compared to 04/23/2019, possibly acute. 2. L2 compression fracture unchanged compared to 04/23/2019. 3. 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 Per Randy Castellano M.D. on 06/26/2021 Treatment Goals Patient/Caregiver Goals I just want to do normal things, go for walks, get out to dinner, without pain. PT-OP-C Subjective Start: 09/03/21 16:53 Freq: Status: Active Protocol: Document 09/03/21 11:15 DCW (Rec: 09/06/21 09:43 DCW [id number]) OP-PT Subjective Patient Comments Patient Comments I had a bone scan a few months ago, I scored a -3.9 in my neck and back, so that's not good. Patient Questionnaires Oswestry Low Back Index Oswestry Score 27/50 = 54% Oswestry Impairment 40 to 59% Impaired (Score 40- 59) OP-PT Pain Assessment Pain Assessment Grid Paper Pain Assessment Grid Completed Yes: See scan PT-OP-F Manual Assessment Start: 09/03/21 16:53 Freq: Status: Active Protocol: Document 09/03/21 11:15 DCW (Rec: 09/06/21 13:11 DCW [id number]) Manual Assessments Soft Tissue Assessment Soft Tissue Mobility Assessment Moderate hypertonia with tenderness to palpation 2/4: Pain with wincing along bilateral QL, L>R Joint Mobility Assessment Joint Mobility Assessment Upper lumbar/low thoracic left scoliotic curvature PT-OP-K Range of Motion Start: 09/03/21 16:53 Freq: Status: Active Protocol: Document 09/03/21 11:15 DCW (Rec: 09/06/21 13:11 DCW [id number]) Lumbar Spine Range of Motion Lumbar Spine Active Degrees Testing Position Standing Flexion 50 Extension 15 Lateral Flexion Left 60 Lateral Flexion Right 57 ROM Limitations Soft Tissue Tightness,Bony Restriction,Pain Comments Lateral flexion measures in cm from fingertips to floor PT-OP-L Special Tests Start: 09/03/21 16:53 Freq: Status: Active Protocol: Document 09/03/21 11:15 DCW (Rec: 09/06/21 13:11 DCW [id number]) Special Tests Lumbar Spine Special Tests ADARSH Test Results Negative Straight Leg Raise Test Results Bilateral HS tightness Slump Test Results Negative A-P Shearing Test Results Negative PT-OP-M Strength Start: 09/03/21 16:53 Freq: Status: Active Protocol: Document 09/03/21 11:15 DCW (Rec: 09/06/21 13:11 DCW [id number]) Trunk Strength Trunk Manual Muscle Testing Core Stabilization Difficulty with core contraction upon command, difficulty holding TrA. 3+/5 Hip Strength Hip Manual Muscle Testing Right Flexion (L2) 4+ Good+ Abduction 5 Normal Adduction 5 Normal External Rotation 4+ Good+ Internal Rotation 5 Normal Left Flexion (L2) 4+ Good+ Abduction 5 Normal Adduction 5 Normal External Rotation 4+ Good+ Internal Rotation 5 Normal PT-OP-T Assessment and Plan Start: 09/03/21 16:53 Freq: Status: Active Protocol: Document 09/03/21 11:15 DCW (Rec: 09/06/21 13:33 DCW [id number]) Physical Therapy Assessment Rehab Potential Rehabilitation Potential Good Evaluation Complexity Number of Personal Factors/Comorbidities 1-2 Number of Body Systems Impaired 3 Clinical Presentation at Evaluation Stable Impairments Impairments Activity Tolerance,Functional Activities,Functional Mobility ,Pain,Posture,ROM,Soft Tissue Mobility,Strength,Tone Goals Two Impairment Pt experiences increased back pain standing longer than 10 minutes Finish Patcher Goal (LTG) Pt to demonstrate ability to stand for 20 minutes without low back pain in order to return to doing dishes without needing a rest break. LTG Duration 11/01/21 One Impairment Pt does not have an appropriate home exercise program Short Term Goal (STG) Pt to be independent and compliant with an appropriate HEP STG Duration 10/01/21 Assessment Summary Assessment Pt presents with pain and stiffness more than 2 months s /p L1 compression fracture. Pt limited ROM and core strength , but does show very good LE strength. Had been trying to exercise with a walking program and aquatic therapy, but has not returned since her fracture. Is very interested in trying aquatic therapy. Pt also entered clinic today carrying her back brace, reporting it was uncomfortable and she didn't think it was useful. Pt felt better about brace after slight adjustments to the fit. Pt should benefit from skilled therapy focusing on improving core strength, posture, spinal ROM, as well as aquatic therapy. Physical Therapy Plan Frequency and Duration Frequency of Treatment 2x/Week Plan of Care Start Date 09/03/21 Plan of Care End Date 11/01/21 Therapeutic Interventions Therapeutic Interventions Aquatic Therapy,Gait Training, Home Exercise Program,Manual Therapy,Patient/Caregiver Education,Self-Care/Home Management,Soft Tissue Mobilization,Therapeutic Activities,Therapeutic Exercises Next Visit Focus/Plan Next Note Type Treatment Note Next Visit Plan Core strengthening, mobility, ROM, posture training
--- NOTE | 2021-09-13 14:54 | PT.OPDS ---
Current Diagnoses Pain in other specified joint (09/03/21) Stiffness of other specified joint, not elsewhere classified (09/03/21) Age-related osteoporosis with current pathological fracture, unspecified site, initial encounter for fracture (09/03/21) Visit Care Team Role Provider Type Marybeth Gutierrez MD Family Provider Physician Specialty: Orthopedic Surgery Address: [address] [place] [address], [id number] Email: [email or web address] Attending Provider Non-Staff Primary Care Provider Referring Provider Specialty: Internal Medicine Address: [address] [place] [address], [id number] Email: Visit Number Visit Number 1 Discharge Summary PT-OP-B Current Condition Start: 09/03/21 16:53 Freq: Status: Active Protocol: Document 09/03/21 11:15 DCW (Rec: 09/06/21 09:43 DCW [id number]) Current Condition History of Current Condition Onset Date ~Two month history Current Complaints Low back pain and activity limitations s/p lumbar compression fracture History of Current Condition Pt is a 75 year old female presenting with low back pain two months s/p L1 compression fracture. Notes that she was visiting her kids, and tripped over a dog, fell right back on my butt. Notes that she has a good bed, good recliner, can get herself into comfortable positions, however within 10 minutes of getting up, she is in significant pain . Driving longer than 15 minutes also maker her very uncomfortable. Has difficulty with pain meds, as they cause nausea. Notes approximately two years ago, she suffered an L2 compression fracture. Also has a history of bariatric surgery, multiple aversion fractures in her ankles. Additionally, pt brings in her back brace today, reports it is very uncomfortable and she thinks it needs to be adjusted . Prior Treatments and Tests Lumbar x-ray: IMPRESSION: 1. L1 compression fracture, new compared to 04/23/2019, possibly acute. 2. L2 compression fracture unchanged compared to 04/23/2019. 3. 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 Per Randy Castellano M.D. on 06/26/2021 Treatment Goals Patient/Caregiver Goals I just want to do normal things, go for walks, get out to dinner, without pain. PT-OP-C Subjective Start: 09/03/21 16:53 Freq: Status: Active Protocol: Document 09/03/21 11:15 DCW (Rec: 09/06/21 09:43 DCW [id number]) OP-PT Subjective Patient Comments Patient Comments I had a bone scan a few months ago, I scored a -3.9 in my neck and back, so that's not good. Patient Questionnaires Oswestry Low Back Index Oswestry Score 27/50 = 54% Oswestry Impairment 40 to 59% Impaired (Score 40- 59) OP-PT Pain Assessment Pain Assessment Grid Paper Pain Assessment Grid Completed Yes: See scan PT-OP-F Manual Assessment Start: 09/03/21 16:53 Freq: Status: Active Protocol: Document 09/03/21 11:15 DCW (Rec: 09/06/21 13:11 DCW [id number]) Manual Assessments Soft Tissue Assessment Soft Tissue Mobility Assessment Moderate hypertonia with tenderness to palpation 2/4: Pain with wincing along bilateral QL, L>R Joint Mobility Assessment Joint Mobility Assessment Upper lumbar/low thoracic left scoliotic curvature PT-OP-K Range of Motion Start: 09/03/21 16:53 Freq: Status: Active Protocol: Document 09/03/21 11:15 DCW (Rec: 09/06/21 13:11 DCW [id number]) Lumbar Spine Range of Motion Lumbar Spine Active Degrees Testing Position Standing Flexion 50 Extension 15 Lateral Flexion Left 60 Lateral Flexion Right 57 ROM Limitations Soft Tissue Tightness,Bony Restriction,Pain Comments Lateral flexion measures in cm from fingertips to floor PT-OP-L Special Tests Start: 09/03/21 16:53 Freq: Status: Active Protocol: Document 09/03/21 11:15 DCW (Rec: 09/06/21 13:11 DCW [id number]) Special Tests Lumbar Spine Special Tests ADARSH Test Results Negative Straight Leg Raise Test Results Bilateral HS tightness Slump Test Results Negative A-P Shearing Test Results Negative PT-OP-M Strength Start: 09/03/21 16:53 Freq: Status: Active Protocol: Document 09/03/21 11:15 DCW (Rec: 09/06/21 13:11 DCW [id number]) Trunk Strength Trunk Manual Muscle Testing Core Stabilization Difficulty with core contraction upon command, difficulty holding TrA. 3+/5 Hip Strength Hip Manual Muscle Testing Right Flexion (L2) 4+ Good+ Abduction 5 Normal Adduction 5 Normal External Rotation 4+ Good+ Internal Rotation 5 Normal Left Flexion (L2) 4+ Good+ Abduction 5 Normal Adduction 5 Normal External Rotation 4+ Good+ Internal Rotation 5 Normal PT-OP-T Assessment and Plan Start: 09/03/21 16:53 Freq: Status: Active Protocol: Document 09/13/21 14:52 DCW (Rec: 09/13/21 14:54 DC [id number]) Physical Therapy Assessment Assessment Summary Assessment Pt phoned clinic to request discharge, notes she found a different clinic closer to home. Physical Therapy Plan Discharge Physical Therapy Discharge Reasons Patient Request Next Visit Focus/Plan Next Note Type Discharge Summary
== END 2021-09-15 13:54 ==
LOC: PHYS 10:33
PROVIDERS: Family Provider Orthopaedic Surgery Orthopaedic Surgery of the Spine; PCP Internal Medicine; Referring Provider Internal Medicine; Visit Provider Internal Medicine
DX: M80.00XA Age-related osteoporosis with current pathological fracture, unspecified site, initial encounter for fracture (principal); M25.69 Stiffness of other specified joint, not elsewhere classified; M25.59 Pain in other specified joint
CPT/HCPCS: 97161

== ENCOUNTER 2022-05-25 10:44 | Emergency (ER) | payer MEDICARE, BC, SELFPAY ==
[2022-05-25] VITALS (11 sets, daily range): BP systolic 98–126; BP diastolic 54–66; PULSE 53–61; RESP 16–22; TEMP 36.5; O2SAT 93–98; BMI 34.5
--- NOTE | 2022-05-25 10:49 | ED_ITS ---
HPI - Fall General Chief Complaint: Extremity Injury, Upper Stated Complaint: GLF R shoulder deformity Time Seen by Provider: 05/25/22 10:47 History of Present Illness HPI Narrative: 76-year-old female nonsmoker with history of hypertension, hypothyroid presents by EMS for evaluation of a ground level fall resulting in right shoulder injury. She denies any prodromal symptoms such as dizziness, weakness or lightheadedness. She states that she tripped over some bedding and fell landing on her right shoulder. She denies any head neck or back pain. She has significant right shoulder pain that is worse with motion and improves with rest. She denies numbness, tingling or weakness. She has no elbow or wrist pain. She denies any lower extremity pain. She is activated as a modified trauma given age greater than 65 and suspected injury Related Data Home Medications Medication Instructions Recorded Confirmed fluoxetine 40 mg capsule 20 mg PO BID ##0 11/21/16 03/23/21 hydrochlorothiazide 12.5 mg capsule 12.5 mg PO Q DAY ##0 11/21/16 03/23/21 raloxifene 60 mg tablet (Evista) 60 mg PO QDAY ##0 11/21/16 03/23/21 cholecalciferol (vitamin D3) 125 50,000 mcg PO 3XW 12/15/20 03/23/21 mcg (5,000 unit) tablet (Vitamin D3) multivitamin cap 12/15/20 abaloparatide (Tymlos) 80 mcg SUBCUT DAILY 04/26/22 04/26/22 levothyroxine 125 mcg tablet 125 mcg PO DAILY 04/26/22 04/26/22 Previous Rx's Medication Instructions Recorded lidocaine 5 % topical patch 1 patch topical DAILY #15 ea 06/26/21 (Lidoderm) Allergies Allergy/AdvReac Type Severity Reaction Status Date / Time erythromycin base Allergy Intermediate HIVES Verified 06/26/21 16:54 [ERYTHROMYCIN BASE] codeine [CODEINE] AdvReac Intermediate NAUSEA Verified 06/26/21 16:54 Review of Systems Review of Systems Narrative: GENERAL: Denies chills, fatigue, malaise, fever, sweats. HEENT: Denies sinus pain, ear pain, sore throat, difficulty swallowing, dizziness. RESPIRATORY: Denies dyspnea, cough, wheezing, hemoptysis, sputum. CARDIOVASCULAR: Denies chest pain, palpitations, orthopnea, edema, GASTROINTESTINAL: Denies nausea, vomiting, abdominal pain, diarrhea, constipation, melena. : Denies dysuria, frequency, incontinence, hematuria, urinary retention. MUSCULOSKELETAL: see HPI SKIN: Denies rash, skin lesions, or other NEUROLOGIC: Denies weakness, headache, numbness, change in speech, confusion, seizures, incoordination. PSYCHIATRIC: No concerning psychosocial issues. 12 point review of systems is negative except for those stated above Patient History Medical History Anemia Chronic anxiety Hypertension Hypothyroid obesity Hypothyroidism Meniere disease Obstructive sleep apnea Osteoporosis Surgical History History of hysterectomy History of reduction mammoplasty History of tonsillectomy Hx of section Family History Father CML (chronic myelocytic leukemia) Heart disease Mother Renal pelvis transitional cell malignant neoplasm Stroke Sister Ovarian cancer Social History marital status: household members: spouse Smoking Status: Never smoker alcohol intake: never substance use type: does not use Smoking Status: Never smoker Substance Use Type: does not use Exam Narrative Exam Narrative: GENERAL: [76] year old patient appears stated age. Well-developed patient, in mild distress. GCS 15 HEAD: Atraumatic. Normocephalic. EYES: Pupils equal round and reactive. Extraocular motions intact. No scleral icterus. No injection or drainage. ENT: Nose without bleeding, purulent drainage. Throat without erythema, tonsillar hypertrophy or exudate. Airway patent. NECK: Trachea midline. Non tender CARDIOVASCULAR: Regular rate and rhythm without murmurs, gallops, or rubs. RESPIRATORY: Clear to auscultation. Breath sounds equal bilaterally. No wheezes, rales, or rhonchi. GASTROINTESTINAL: Abdomen soft, non-tender, nondistended. EXTREMITIES: Right shoulder with swelling and ecchymosis, tender to palpate and decreased range of motion secondary to pain. Compartments are soft, no pain with range of motion or palpation in elbow or wrist. Cap refill and sensation intact. BACK: Nontender without deformity or crepitance. No flank tenderness. NEURO: AOx3. SKIN: No rash or erythema of visible areas Initial Vital Signs Initial Vital Signs: Vital Signs Pulse Rate 57 L 05/25/22 10:53 Respiratory Rate 16 05/25/22 10:53 Blood Pressure 120/64 05/25/22 10:53 Pulse Oximetry 98 05/25/22 10:53 Oxygen Delivery Method 05/25/22 10:53 Procedures Orthopedic Splinting/Casting Injury #1: Side: right Upper Extremity Injury Location: shoulder Upper Extremity Immobilizer: sling/shoulder immobilizer Post splinting neuro exam: intact Post splinting vascular exam: intact Placed by: Nursing Course Orders Ordered: ED Orders 05/25/22 10:51 XR knee LT 3V Stat XR shoulder RT min 2V Stat Vital Signs Vital signs: Vital Signs - 8 hr 05/25/22 10:53 05/25/22 10:58 05/25/22 11:00 Pulse Rate 57 L 53 L Respiratory Rate 16 22 Blood Pressure 120/64 126/66 Pulse Oximetry 98 98 Oxygen Delivery Method Room Air 05/25/22 11:00 05/25/22 11:30 05/25/22 12:00 Pulse Rate 56 L 53 L 57 L Respiratory Rate 22 18 Blood Pressure Pulse Oximetry 98 97 93 Oxygen Delivery Method 05/25/22 12:08 05/25/22 12:08 05/25/22 12:10 Pulse Rate 56 L 54 L Respiratory Rate Blood Pressure 98/54 L Pulse Oximetry 95 95 Oxygen Delivery Method 05/25/22 12:10 05/25/22 12:20 05/25/22 12:20 Pulse Rate 61 Respiratory Rate Blood Pressure 103/58 L 104/59 L Pulse Oximetry 96 Oxygen Delivery Method 05/25/22 12:30 05/25/22 12:30 Pulse Rate 58 L Respiratory Rate Blood Pressure 107/61 Pulse Oximetry 95 Oxygen Delivery Method MDM - Fall Imaging Data Shoulder Xray: Radiologist's Impression: [address] [address]PB[address] ReportSigned Patient: Hawa Thomas [facility]#: [id number]: 11[birth year]10/2009cct:[id number]/Sex: te of Service: 05/25/22Loc: EDAccession Number: [id number] Procedure: XR chest 2V Ordering Provider: Sandip Taylor D.O. PROCEDURE: XR CHEST 2V INDICATIONS: cough, fever, RSV TECHNIQUE: 2 views of the chest were acquired. COMPARISON: None. FINDINGS: Surgical changes and devices: None. Lungs and pleura: Mild bilateral perihilar opacity and peribronchial cuffing. No pleural effusions or pneumothorax. Mediastinum: Mediastinal contours are normal. Heart size is normal. Bones and chest wall: No suspicious bony abnormalities. Soft tissues appear unremarkable. IMPRESSION: Mild bronchopneumonia. Dictated by: Zeina Reilly M.D. on 05/25/2022 at 10:31 Approved by: Zeina Reilly M.D. on 05/25/2022 at 10:31 Knee: Radiologist's Impression: Ann Mai??76??F??1945 ? Allergy/Adv: erythromycin base, codeine Close Shoulder X-Ray (Signed) Charan Betancourt - 05/25/22 Knee X-Ray (Signed) Charan Betancourt - 05/25/22 Lumbar Spine X-Ray (Signed) Randy Castellano - 06/26/21 Bone Densitometry (Signed) Gustavo Sellers - 04/22/21 Telemetry Strips 10/13/20 Bone Densitometry 04/15/19 Lumbar Spine MRI (Signed) Anuj River - 03/13/18 Thoracic Spine X-Ray (Signed) Jose Mesa - 02/27/18 Lumbar Spine X-Ray (Signed) Jose Mesa - 02/27/18 Launch?[address] [address] XRay Report Signed Patient: Ann Mai MR#: [id number] : 1945 Acct:[id number] Age/Sex: 76 / F Date of Service: 05/25/22 Loc: ED Accession Number: [id number] ?? Procedure: XR knee LT 3V Ordering Provider: Sandip Taylor D.O. PROCEDURE:? XR KNEE LT 3V ? INDICATIONS:? fall with knee pain, superior /medial. ? TECHNIQUE:? 3 views of the knee were acquired.? ? COMPARISON:? None. ? FINDINGS:? ? Bones:? No fractures or dislocations.? No suspicious bony lesions.? Mild tricompartmental degenerative changes. ? Soft tissues:? No joint effusion.? No suspicious soft tissue calcifications.? ? ? IMPRESSION:? No acute osseous abnormality.? If symptoms persist, follow-up radiographs and/or CT or MRI may be helpful for further evaluation. ? ? Dictated by: Charan Betancourt M.D. on 05/25/2022 at 11:33 ? ? Discharge Plan Departure Patient Disposition: Home Clinical Impression: Fracture of proximal end of right humerus Instructions: Humeral Shaft Fracture Activity Restrictions/Additional Instructions: *You have been diagnosed with [right proximal humerus fracture] *What to do: *Please continue to take your regular medications as directed. [ ] New medication prescriptions sent to your pharmacy: [ ] [ ] New medication written as a paper prescription [x] Alternate Tylenol 500-650mg and Motrin 600mg every 6 hours for pain *Please follow up with Dr. Ernst Lema] of [facility] in 2-3 days, call for an appointment. Let them know you were seen in the Emergency Department and that we ask that you be seen in follow up. We will electronically transmit a record of today's note if your PCP is in our system *Return to Emergency Department if you should have any new, worsening or concerning symptoms, such as [worsening pain, significant swelling, cold extremities, numbness, tingling, weakness or other bothersome symptoms Sling Care: Keep sling clean and dry. Elevated affected body part to decrease swelling. OK to use ice pack on the affected body part. If you develop worsening pain, numbness, tingling, discoloration of the affected body part, either see your doctor for an urgent re-assessment, or return to the Emergency Department. Return to the Emergency Department for any new or worsening symptoms. Prescriptions: No Action raloxifene [Evista] 60 MG tablet 60 mg PO QDAY Qty: 0 fluoxetine 40 MG capsule 20 mg PO BID Qty: 0 hydrochlorothiazide 12.5 MG capsule 12.5 mg PO Q DAY Qty: 0 multivitamin Capsule Rx Instructions: multivitamin in transdermal patch cholecalciferol (vitamin D3) [Vitamin D3] 125 mcg (5,000 unit) Tablet 50,000 mcg PO 3XW levothyroxine 125 mcg Tablet 125 mcg PO DAILY Tymlos 80 mcg (3,120 mcg/1.56 mL) Pen Injector 80 mcg SUBCUT DAILY Rx Instructions: inject into abdomen; do not inject within 2 inches of belly button/navel; rotate sites lidocaine [Lidoderm] 5 % adhesive patch,medicated 1 patch TOP DAILY Qty: 15 0RF Rx Instructions: leave on most painful area for 12 hrs Referrals: Jose Goldberg MD [Primary Care Provider] - Cori Lema MD [Physician] -
--- NOTE | 2022-05-25 10:51 | DI.RAD.S_ITS ---
PROCEDURE: XR SHOULDER RT MIN 2V INDICATIONS: fall with pain / swelling in anterior shoulder TECHNIQUE: 2 views of the shoulder were acquired. COMPARISON: None. FINDINGS: Exam limited due to difficulty with patient positioning. Cortical irregularity is present at the humeral neck with an adjacent bony fragment suspicious for an acute fracture with probable impaction. No definite glenohumeral joint dislocation. IMPRESSION: Exam limited due to difficulty with patient positioning. Findings are suspicious for an acute fracture of the humeral neck. Dictated by: Charan Betancourt M.D. on 05/25/2022 at 11:36 Approved by: Charan Betancourt M.D. on 05/25/2022 at 11:40
--- NOTE | 2022-05-25 10:51 | DI.RAD.S_ITS ---
PROCEDURE: XR KNEE LT 3V INDICATIONS: fall with knee pain, superior /medial. TECHNIQUE: 3 views of the knee were acquired. COMPARISON: None. FINDINGS: Bones: No fractures or dislocations. No suspicious bony lesions. Mild tricompartmental degenerative changes. Soft tissues: No joint effusion. No suspicious soft tissue calcifications. IMPRESSION: No acute osseous abnormality. If symptoms persist, follow-up radiographs and/or CT or MRI may be helpful for further evaluation. Dictated by: Charan Betancourt M.D. on 05/25/2022 at 11:33 Approved by: Charan Betancourt M.D. on 05/25/2022 at 11:36
[2022-05-25] MEDS: ONDANSETRON 4 MG ODT SL (13:47)
[2022-05-25] MEDS: fentaNYL 100 MCG/2 ML INJ 50 MCG IM (15:02)
== END 2022-05-25 15:50 | disposition home or self-care (01) ==
PROVIDERS: Emergency Provider Emergency Medicine; Family Provider Orthopaedic Surgery Orthopaedic Surgery of the Spine; PCP Internal Medicine
DX: S42.201A Unspecified fracture of upper end of right humerus, initial encounter for closed fracture (principal); W18.30XA Fall on same level, unspecified, initial encounter
CPT/HCPCS: 36415; 73030; 73562; 96372; 99283; 99284; J3010

== ENCOUNTER 2022-10-05 12:19 | Day surgery (SDC) | payer MEDICARE, BC, SELFPAY ==
--- NOTE | 2022-10-05 | PATH_ITS ---
[facility] Accession Number: [id number] No. of containers..01 Tissue . 01 Material submitted: . esophagus, E-G Junction - GE JUNCTION . 01 Diagnosis: Gastroesophageal Junction, Biopsy: Squamocolumnar junctional mucosa with no diagnostic abnormality. Negative for intestinal metaplasia. Negative for dysplasia and malignancy. MOODY 10/10/2022 1204 Local . 01 Electronically signed: . Lauro Yanes MD, PhD, Pathologist NPI- [id number] . 01 Gross description: . GE JUNCTION: Received in formalin are 2 fragment(s) of ramsay, soft tissue measuring 0.3 x 0.2 x 0.1 cm to 0.2 x 0.1 x 0.1 cm submitted entirely in 1 cassette(s) /CPE 10/07/2022 0558 Local . 01 Pathologist provided ICD-10: K20.80 . 01 CPT . 882299 Specimen Comment: A courtesy copy of this report has been sent to [phone] Performed at: 01 [facility] [address] [place] [address], [place], [place] [id number] MD Hang Carpenter MD Phone: [phone]
[2022-10-05 13:10] VITALS: BP 119/67; PULSE 67; RESP 16; TEMP 36.7; O2SAT 96; BMI 32.5
[2022-10-05] MEDS: LACTATED RINGERS 1,000 ML 42 ML IV (13:25)
--- NOTE | 2022-10-05 14:10 | PM.HP.1 ---
History of Present Illness History of Present Illness Chief complaint: EGD Narrative: Possible history of Monk's esophagus need for follow-up to determine whether or not actually present. [facility] Medical History Anemia Chronic anxiety Hypertension Hypothyroid obesity Hypothyroidism Meniere disease Obstructive sleep apnea Osteoporosis Surgical History History of hysterectomy History of reduction mammoplasty History of tonsillectomy Hx of section Family History Father CML (chronic myelocytic leukemia) Heart disease Mother Renal pelvis transitional cell malignant neoplasm Stroke Sister Ovarian cancer Social History marital status: household members: spouse Smoking Status: Never smoker alcohol intake: never substance use type: does not use Meds Home Medications and Allergies Home Medications Medication Instructions Recorded Confirmed Type fluoxetine 40 mg capsule 20 mg PO Q1-2D ##0 11/21/16 10/05/22 History hydrochlorothiazide 12.5 mg capsule 12.5 mg PO Q DAY ##0 11/21/16 10/05/22 History raloxifene 60 mg tablet (Evista) 60 mg PO QDAY ##0 11/21/16 10/05/22 History cholecalciferol (vitamin D3) 125 50,000 mcg PO 3XW 12/15/20 10/05/22 History mcg (5,000 unit) tablet (Vitamin D3) multivitamin 1 cap PO DAILY 12/15/20 10/05/22 History abaloparatide (Tymlos) 80 mcg SUBCUT DAILY 04/26/22 10/05/22 History levothyroxine 125 mcg tablet 125 mcg PO DAILY 04/26/22 10/05/22 History Allergies Allergy/AdvReac Type Severity Reaction Status Date / Time erythromycin base Allergy Intermediate HIVES Verified 10/05/22 13:03 [ERYTHROMYCIN BASE] codeine [CODEINE] AdvReac Intermediate NAUSEA Verified 10/05/22 13:03 Exam Vital Signs (past 8 hours): - 10/05/22 13:10 Temperature 98.1 F Pulse Rate 67 Respiratory Rate 16 Blood Pressure 119/67 Pulse Oximetry 96 Oxygen Delivery Method Room Air Oxygen Flow Rate 0 Oxygen Delivery Method Room Air Oxygen Flow Rate 0 Narrative Exam Narrative: Oropharynx free of lesions Chest clear to auscultation percussion Cardiac exam reveals no S3 or murmur Assessment & Plan Assessment & Plan narrative: Possible history of very short segment Barretts esophagus need for follow-up EGD and biopsy. Risks, benefits, alternatives have been explained.
--- NOTE | 2022-10-05 14:11 | PM.OP.EGD ---
Operative Date/Time/Diagnoses Date of procedure: 10/05/22 Procedure & Clinicians Study performed: EGD Indications: Possible Monk's esophagus Surgeon: Presley Lyle Procedure Notes Procedure in detail: After informed consent was obtained the patient was placed in left lateral decubitus position. The video upper scope was placed into the oropharynx and with the patient's help swelled into the esophagus. The esophagus stomach and duodenum were carefully examined. On withdrawal, retroflexed view the GE junction was performed. The scope was removed. The patient tolerated procedure well. Blood loss none Complications none Sedation propofol Findings 1. Essentially normal esophagus. There were not 3-4 cm tongues of Monk's protruding above the GE junction. The GE junction was very irregular at. There were however 2 small spots of salmon appearing mucosa of less than 5 mm. Other than these 2 spots the circumference was entirely regular. One biopsy was taken the in each area and placed in the same bottle. 2. Pancreatico- biliary diversion for bariatric purposes 3. Substantial mixed liquid and solid retained food in stomach consistent with poor gastric emptying. We will merely await biopsies to determine whether not she has Monk's esophagus. Or the point however is that her poor gastric empty is probably a main contributor to symptoms. All
[2022-10-05 14:35] VITALS: BP 107/57; PULSE 75; RESP 14; TEMP 36.6; O2SAT 96
[2022-10-05 14:40] VITALS: BP 105/68; PULSE 65; RESP 14; O2SAT 96
[2022-10-05 14:45] VITALS: BP 107/61; PULSE 79; RESP 16; O2SAT 97
[2022-10-05 15:10] VITALS: BP 111/70; PULSE 74; RESP 16; TEMP 36.4; O2SAT 97
== END 2022-10-05 15:24 | disposition home or self-care (01) ==
PROVIDERS: Family Provider Orthopaedic Surgery Orthopaedic Surgery of the Spine; PCP Internal Medicine; Referring Provider Internal Medicine Gastroenterology; Visit Provider Internal Medicine Gastroenterology
PROC: 0DJ08ZZ Inspection of Upper Intestinal Tract, Via Natural or Artificial Opening Endoscopic (ICD-10-PCS; CPT 43235; principal; 2022-10-05 13:00)
DX: Z87.19 Personal history of other diseases of the digestive system (principal); Z98.84 Bariatric surgery status; M81.0 Age-related osteoporosis without current pathological fracture
CPT/HCPCS: 43239; J2704

== ENCOUNTER → 2023-04-17 13:44 | Outpatient (CLI) | payer MEDICARE, BC, SELFPAY ==
--- NOTE | 2023-04-17 | DI.RAD.S_ITS ---
Bone Density Report Name: BRUCE WEBSTER Age: 77 Sex: Female Ethnicity: White Date of : 1945 Indication: postmenopausal osteoporosis; monitoring treatment; prior fracture; Referring Provider: JORGE DAMICO Study: Bone densitometry was performed. Exam Date: April 17, 2023 Accession number: [id number] Bone Density: Region BMD T-score Z-score Classification AP Spine(L1-L4) 0.944 -0.9 1.5 Normal Femoral Neck (Left) 0.651 -1.8 0.4 Osteopenia Total Hip (Left) 0.719 -1.8 0.0 Osteopenia Femoral Neck (Right) 0.693 -1.4 0.7 Osteopenia Total Hip (Right) 0.813 -1.1 0.8 Osteopenia Total Hip Mean 0.766 -1.5 0.4 Osteopenia World Health Organization criteria for BMD impression classify patients as: Normal (T-score at or above -1.0), Osteopenia (T-score between -1.0 and -2.5), or Osteoporosis (T-score at or below -2.5). 10-year Fracture Risk: FRAX not reported because: Prior hip or vertebral fracture Treated for osteoporosis Previous Exams: -- Region Exam Age BMD T-score BMD Change BMD Change Date g/cm2 vs Baseline vs Previous -- AP Spine (L1-L4) 04/17/2023 77 0.944 -0.9 0.166 (21.4%)# 0.166 (21.4%)# 04/22/2021 75 0.777 -2.5 Total Hip(Left) 04/17/2023 77 0.719 -1.8 0.025 (3.6%)# 0.025 (3.6%)# 04/22/2021 75 0.694 -2.0 Total Hip(Right) 04/17/2023 77 0.813 -1.1 0.053 (6.9%)# 0.053 (6.9%)# 04/22/2021 75 0.760 -1.5 -- *Denotes significance at 95% confidence level, LSC for AP Spine = 0.022 g/cm2, LSC for Total Hip = 0.027 g/cm2 # Denotes dissimilar scan types or analysis methods Impression: The patient has low bone mass, based on the Left Total Hip T-score. The patient has risk factors, including: previous fracture. No significant bone loss was observed. Discussion: PATIENT UNDER TREATMENT WITH NO SIGNIFICANT BMD LOSS SINCE LAST EXAM. In an untreated patient, BMD typically declines with age. A lack of decline or gain is usually a sign that treatment is efficacious and fracture risk is reduced. It is important to ask patients whether they are taking their medications and to encourage continued and appropriate compliance with their osteoporosis therapies to reduce fracture risk. It is also important to review their risk factors and encourage appropriate calcium and vitamin D intakes, exercise, fall prevention and other lifestyle measures. Follow-Up: Consider a repeat BMD and Vertebral Fracture Assessment (VFA) exam in 2 years or sooner if medically necessary, to reassess this patient's status. Reported by: PARVEEN PANDYA M.D. on 04/17/2023 3:24:00 PM.
== END ==
PROVIDERS: Family Provider Orthopaedic Surgery Orthopaedic Surgery of the Spine; PCP Student in an Organized Health Care Education/Training Program; Referring Provider Student in an Organized Health Care Education/Training Program; Visit Provider Student in an Organized Health Care Education/Training Program
DX: M81.0 Age-related osteoporosis without current pathological fracture (principal); M85.89 Other specified disorders of bone density and structure, multiple sites
CPT/HCPCS: 77080

== ENCOUNTER → 2024-02-26 11:03 | Outpatient (CLI) | payer MEDICARE, BC, SELFPAY ==
--- NOTE | 2024-02-26 11:06 | DI.RAD.S_ITS ---
PROCEDURE: XR DEXA AXIAL SKELETON INDICATIONS: AGE RELATED OSTEOPOROSIS COMPARISON: [facility], [place], XR DEXA AXIAL SKELETON, 04/17/2023, 14:41. FINDINGS: Lumbar Spine: L1-L3. Bone mineral density 0.930 g/cm2, T score -0.8. Left Hip: Bone mineral density 0.717 g/cm2, T score -1.8. Left Femoral Neck: Bone mineral density 0.650 g/cm2, T score -1.8. Right Hip: Bone mineral density 0.839 g/cm2, T score -0.8. Right Femoral Neck: Bone mineral density 0.752 g/cm2, T score -0.9. Fracture Risk Calculation (when applicable): 10-year fracture risk of a major osteoporotic fracture 19 % and of a hip fracture 4.1 %. (T score greater or equal to -1.0 to: NORMAL) (T score from -1.1 to -2.4: OSTEOPENIA) (T score less than or equal to -2.5: OSTEOPOROSIS) IMPRESSION: Osteopenia. Follow-up guidelines as follows: Osteoporosis: Consider a repeat DEXA and Vertebral Fracture Assessment (VFA) exam in 2 years or sooner if medically necessary, to reassess this patient's status. Osteopenia: Consider a repeat DEXA in 2-3 years to reassess this patient's status, or if there is a new clinical indication. Normal: Consider a repeat DEXA in 5 years or sooner, or if there is a new clinical indication. All treatment decisions require clinical judgment and consideration of individual patient factors, including patient preferences, comorbidities, previous drug use, risk factors not captured in the FRAX model (e.g., frailty, falls, vitamin D deficiency, increased bone turnover, interval significant decline in bone density ) and possible under- or over-estimation of fracture risk by FRAX. In addition, the NOF Guide recommends that FDA-approved medical therapies be considered in postmenopausal women and men age >= 50 years with a: * Hip or vertebral (clinical or morphometric) fracture * T-score of <=-2.5 at the spine or hip * Ten-year fracture probability by FRAX of >= 3% for hip fracture or >=20% for major osteoporotic fracture. People with diagnosed cases of osteoporosis or at high risk for fracture should have regular bone mineral density tests. For patients eligible for Medicare, routine testing is allowed once every 2 years. The testing frequency can be increased to one year for patients who have rapidly progressing disease, those who are receiving or discontinuing medical therapy to restore bone mass, or have additional risk factors. Dictated by: Magan Moya M.D. on 02/26/2024 at 17:08 Approved by: Magan Moya M.D. on 02/26/2024 at 17:11
== END ==
PROVIDERS: Family Provider Orthopaedic Surgery Orthopaedic Surgery of the Spine; PCP Student in an Organized Health Care Education/Training Program; Visit Provider Internal Medicine Endocrinology, Diabetes & Metabolism
DX: M81.0 Age-related osteoporosis without current pathological fracture (principal)
CPT/HCPCS: 77080

== ENCOUNTER → 2025-04-11 13:59 | Outpatient (CLI) | payer MEDICARE, BC, SELFPAY ==
--- NOTE | 2025-04-11 14:02 | DI.RAD.S_ITS ---
PROCEDURE: XR DEXA AXIAL SKELETON INDICATIONS: M81.0 COMPARISON: [facility], [place], XR DEXA AXIAL SKELETON, 02/26/2024, 11:38. FINDINGS: Lumbar Spine L1 through L3: Bone mineral density 0.921 g/cm2, T score -0.9, normal, change from previous-1.0%. Left Femoral Neck: Bone mineral density 0.639 g/cm2, T score -1.9, osteopenia. Left Hip: Bone mineral density 0.713 g/cm2, T score -1.9, osteopenia, change from previous-0.6% Statistical significance of bone mineral density change cannot be determined due to dissimilar scan types or analysis method.. Fracture Risk Calculation (when applicable): 10-year fracture risk of a major osteoporotic fracture 20 percent and of a hip fracture 4.7 percent. (T score greater or equal to -1.0 to: NORMAL) (T score from -1.1 to -2.4: OSTEOPENIA) (T score less than or equal to -2.5: OSTEOPOROSIS) IMPRESSION: Osteopenia elevates the patient's 10 year fracture risk as described. No change in bone mineral density compared to the prior exam. Follow-up guidelines as follows: Osteoporosis: Consider a repeat DEXA and Vertebral Fracture Assessment (VFA) exam in 2 years or sooner if medically necessary, to reassess this patient's status. Osteopenia: Consider a repeat DEXA in 2-3 years to reassess this patient's status, or if there is a new clinical indication. Normal: Consider a repeat DEXA in 5 years or sooner, or if there is a new clinical indication. All treatment decisions require clinical judgment and consideration of individual patient factors, including patient preferences, comorbidities, previous drug use, risk factors not captured in the FRAX model (e.g., frailty, falls, vitamin D deficiency, increased bone turnover, interval significant decline in bone density ) and possible under- or over-estimation of fracture risk by FRAX. In addition, the NOF Guide recommends that FDA-approved medical therapies be considered in postmenopausal women and men age >= 50 years with a: * Hip or vertebral (clinical or morphometric) fracture * T-score of <=-2.5 at the spine or hip * Ten-year fracture probability by FRAX of >= 3% for hip fracture or >=20% for major osteoporotic fracture. Dictated by: Marialuisa Kan M.D. on 04/11/2025 at 23:00 Approved by: Marialuisa Kan M.D. on 04/11/2025 at 23:01
== END ==
LOC: RAD 14:01
PROVIDERS: Family Provider Orthopaedic Surgery Orthopaedic Surgery of the Spine; PCP Student in an Organized Health Care Education/Training Program; Referring Provider Internal Medicine Endocrinology, Diabetes & Metabolism; Visit Provider Internal Medicine Endocrinology, Diabetes & Metabolism
DX: M81.0 Age-related osteoporosis without current pathological fracture (principal)
CPT/HCPCS: 77080